=== PATIENT | female | born 1980 | race Caucasian/White ===

== ENCOUNTER 2016-09-15 08:15 | Day surgery (SDC) | payer OTHER ==
[~2016-09-15] VITALS: Ht 162.6 cm; Wt 65.8 kg
[~2016-09-15 08:15] MED LIST: 0.9% Sodium Chloride 1,000 ML IV SCH; HYOS0.1281 SL; PREN1TAB25 PO; Sodium Chloride LOK Flush 10 mL Syringe IV PRN; fentaNYL-PF 50 mCg/mL 2 mL Inj IVPUSH PRN
[2016-09-15 08:33] VITALS: BP 125/79; PULSE 70; RESP 14; O2SAT 96
--- NOTE | 2016-09-15 09:55 | PCM.ENDCOL ---
Colonoscopy Date of Service: September 15, 2016 Physician Jose Elias Cruz MD Pre Procedure Diagnosis: Diarrhea Post Procedure Dx & Findings: Hemorrhoids Procedure Colonoscopy PROCEDURE IN DETAIL: Prep adequate Withdrawal time 10 minutes After unremarkable rectal examination the Olympus video colonoscope was inserted patient's anal canal and was advanced to cecum. Landmarks were identified including the ileocecal valve and appendiceal orifice. Advanced to terminal ileum. Advanced about 10 cm. Terminal ileum showed normal villous structures without any ulcer mass or erosion. Scope was withdrawn systematically. Visualized colonic mucosa showed healthy shiny mucosa with normal healthy-appearing vasculature. Random biopsies taken from the cecum to the rectum. In the rectum retroflexion was done which showed hemorrhoids. Anal canal was inspected carefully on the way out and hemorrhoids noted. Impression Terminal ileum normal Hemorrhoids Recommendation Repeat colonoscopy when patient is 52 years old. Biopsies pending Presedation Assessment Risks and Benefits Informed consent was obtained from the patient after all risks and benefits including but not limited to drug reaction, infection, pain, bleeding, perforation, as well as alternatives were discussed. Patient monitoring Continuous pulse oximetry, cardiac monitoring, blood pressure monitoring, IV access, and oxygen at 2L per nasal cannula. Periprocedural Fentanyl: Fentanyl 125mcg Incrementally Midazolam: Midazolam 6mg Incrementally Complications There were no periprocedural complications identified. Post Procedure Plan Post Procedure Recommendations 1. Restrict activities today. 2. Resume normal activities in the morning. 3. Resume medications. 4. Patient informed of normal post procedure side effects as bloating, drowsiness, blood streaking in the stool. 5. average risk CRCS. If colon polyps come back as: -Hyperplastic- can repeat colonoscopy in 10 years -Tubular adenoma- repeat colonoscopy in 5 years -Tubulovillous/villous adenoma- repeat colonoscopy in 3 years -If any dysplasia- return to clinic as soon as possible 6. Please don't hesitate to call me with any questions. Jose Elias Cruz MD September 15, 2016 09:55
[2016-09-15 09:56] VITALS: BP 102/72; PULSE 68; RESP 16; O2SAT 97
[2016-09-15 10:06] VITALS: BP 97/57; PULSE 62; RESP 14; O2SAT 98
[2016-09-15 10:28] VITALS: BP 111/70; PULSE 66; RESP 16; O2SAT 100
--- NOTE | 2016-09-16 11:03 | PATH ---
SURGICAL PATHOLOGY Attending Physician:Jose Elias Cruz M.D. CASE STATUS: Signed Out PATIENT NAME: SHIRLEY CASTELLANO PID: [id number] : 1980 DATE COLLECTED:09/15/2016 16:50 SPECIMEN: Colon, Biopsy CLINICAL HISTORY: 1). RANDOM COLON BIOPSY FINAL DIAGNOSIS: 1.RANDOM COLON BIOPSIES: SINGLE FRAGMENT OF COLON MUCOSA WITH FOCAL MUCOSAL SCARRING CONSISTENT WITH PREVIOUS MUCOSAL INJURY. ALL OTHER COLON FRAGMENTS APPEAR ESSENTIALLY NORMAL, WITH NO SIGNIFICANT ARCHITECTURAL DISTORTION, SIGNIFICANT INFLAMMATION, DYSPLASIA OR MALIGNANCY. ICD10 CODE R19.7 GROSS DESCRIPTION: The specimen is received in one formalin filled container labeled with the patient's name, sublabeled "random colon" and consists of multiple portions of tissue which aggregate to 0.5 x 0.5 x 0.2 CM. The specimen is entirely submitted in one cassette. 09/15/2016 DAC MICRO DESCRIPTION: See diagnosis. ICD-9 CODES: CPT CODES: 1: 69062 Electronically Signed Out Michael Pappas MD [facility] [address], [place] [address] Technical component performed at [facility], [address] [place] [address] Ave[address], [place], [address]
== END 2016-09-15 23:59 | disposition home or self-care (01) ==
LOC: END 08:15
PROVIDERS: ATTEND Internal Medicine
DX: R19.7 Diarrhea, unspecified (principal); K64.9 Unspecified hemorrhoids; R10.84 Generalized abdominal pain
CPT/HCPCS: 45380; G0500; J7030